=== PATIENT | female | born 1960 | race Caucasian/White ===

== ENCOUNTER → 2017-06-26 | Outpatient (CLI) | payer BC ==
[~2017-06-26] MED LIST: ASPI1TAB83 PO; DILT120C43 PO; DOCU100C31 PO; FERR1TAB23 PO; FLEC50TA20 PO; Flonase INH; LSN20 PO; LSX20 PO; OPTIRAY 320 IV PRN; PSYL55.43 PO; Tramadol PO
--- NOTE | 2017-06-26 09:17 | DIAGNOSTIC IMAGING REPORT ---
CT SCAN OF THE CHEST WITH IV CONTRAST CLINICAL HISTORY: Renal cell carcinoma. COMPARISON STUDY: Chest CT dated 11/20/2015. TECHNIQUE: Following the IV administration of 93 cc of Optiray 320, CT scan of the thorax was performed from the thoracic inlet to the upper abdomen. Images are reviewed in the axial, sagittal, and coronal planes. IV contrast was administered without complication. A dose lowering technique was utilized adhering to the principles of ALARA. CT DOSE: 1720.11 mGy.cm FINDINGS: Thyroid: Imaged portions of the thyroid gland are normal in size and attenuation. Thoracic aorta: There is mild atherosclerotic calcification of the thoracic aorta, which is normal in caliber and demonstrates standard 3-vessel arch anatomy. No dissection is seen. Pulmonary vasculature: The pulmonary trunk is normal in caliber. There are no filling defects identified in the central pulmonary vessels to indicate pulmonary embolus. Note that this examination was not protocoled for evaluation of the pulmonary arteries. Heart: The heart is mildly enlarged and without pericardial effusion. There are coronary artery calcifications. Lungs and pleural spaces: Chronic elevation of the right hemidiaphragm with associated right basilar atelectasis is similar to previous. No airspace consolidation or pleural effusion is identified. No concerning pulmonary lesion is seen. The trachea and central airways are clear. Mediastinum: There is no mediastinal lymphadenopathy. [place]: Clear. Axillae: There is no axillary lymphadenopathy. Upper abdomen: The liver is enlarged and there is evidence of hepatic steatosis. The gallbladder is surgically absent. Mild central intrahepatic biliary ductal dilatation is observed. See report of abdominal CT performed concurrently for detailed intra-abdominal findings. Skeletal structures: The skeletal structures are osteopenic. Mild degenerative change is seen throughout the thoracic spine. No lytic or blastic bony lesions are seen. IMPRESSION: 1. There is no evidence of intrathoracic metastatic disease. 2. No airspace consolidation or pleural effusion is seen. 3. Mild cardiomegaly. 4. Additional findings as above. Electronically signed by: Hugo Townsend M.D. 06/26/2017 9:15 AM Dictated Date/Time: 06/26/2017 9:11 AM
--- NOTE | 2017-06-26 09:30 | DIAGNOSTIC IMAGING REPORT ---
CT SCAN OF THE ABDOMEN AND PELVIS WITH IV CONTRAST CLINICAL HISTORY: Renal cell carcinoma. COMPARISON STUDY: Abdominal CT dated 06/25/2016. TECHNIQUE: Following the IV administration of 93 cc of Optiray 320, CT scan of the abdomen and pelvis is performed from the lung bases to the proximal femora. Images are reviewed in the axial, sagittal, and coronal planes. IV contrast was administered without complication. Automated dose control exposure was utilized. A dose lowering technique was utilized adhering to the principles of ALARA. CT DOSE: Reported separately under the concurrently performed CT scan of the chest. FINDINGS: Lung bases: The heart is mildly enlarged and without pericardial effusion. There are coronary artery calcifications. There is chronic elevation of the right hemidiaphragm with associated atelectasis. The lung bases are otherwise clear. Liver: The contrast-enhanced liver is enlarged, measuring 18.6 cm in length. Focal fatty infiltration is seen adjacent to the falciform ligament. The liver is normal in contour. There is mild central intrahepatic biliary ductal dilatation. The hepatic veins and portal veins are patent. Gallbladder: Surgically absent. Spleen: Normal in size and attenuation. Pancreas: Mildly atrophic and grossly unremarkable. Adrenal glands: Unremarkable. Kidneys: The contrast enhanced kidneys demonstrate mild cortical atrophy and are without hydronephrosis. There is postoperative change/scarring identified in the lower pole of the right kidney consistent with a history of partial nephrectomy. There is no evidence of recurrent/residual enhancing soft tissue lesion at the resection margin. No enhancing mass lesion is identified in either kidney on today's examination. Small parapelvic cysts are seen bilaterally. The kidneys enhance symmetrically. Abdominal vasculature: The abdominal aorta is normal in course and caliber noting moderate atherosclerotic calcification. Bowel: The small bowel and colon are normal in course and caliber. There is mild colonic diverticulosis without CT evidence of acute diverticulitis. Colonic fecal retention is observed. The appendix is not identified. Peritoneum: There is no intraperitoneal free air or abdominal ascites. There is a small fat-containing umbilical hernia. A midline surgical scar is noted. Lymphadenopathy: None. Pelvic viscera: The bladder, uterus, and adnexa are normal as visualized. Skeletal structures: The skeletal structures are osteopenic. Mild lumbosacral spondylosis is observed. No lytic or blastic lesions are seen. IMPRESSION: 1. There are postoperative changes from right partial nephrectomy. There is no evidence of recurrent/residual enhancing mass lesion at the resection margin. No enhancing lesion is seen in either kidney. 2. There is no evidence of metastatic disease in the abdomen or pelvis. 3. Mild colonic diverticulosis without CT evidence of acute diverticulitis. 4. Additional findings as above. Electronically signed by: Hugo Townsend M.D. 06/26/2017 9:29 AM Dictated Date/Time: 06/26/2017 9:21 AM
[2017-06-26 09:34] LABS: BASO % 1.4 %; BASO ABS # 0.08 K/uL (0-0.2); COMPLETE YES; HEMATOCRIT 36.9 % (37-47); IG% 0.2 %; LYMPH % 34.9 %; MEAN CELL VOLUME 87.2 fL (80-100); MEAN CORPUSCULAR HEMOGLOBIN 28.4 pg (25-34); MEAN CORPUSCULAR HGB CONC 32.5 g/dl (32-36); MEAN PLATELET VOLUME 8.8 fL (7.4-10.4); MONO % 6.1 %; NEUT % 53.4 %; PLATELET COUNT 245 K/uL (130-400); RED BLOOD COUNT 4.23 M/uL (4.2-5.4); WHITE BLOOD COUNT 5.73 K/uL (4.8-10.8)
[2017-06-26 10:08] LABS: ALT/SGPT 18 U/L (12-78); AST/SGOT 8 U/L (15-37); BLOOD UREA NITROGEN 24 mg/dl (7-18); BUN/CREATININE RATIO 27.2 (10-20); CALCIUM 9.3 mg/dl (8.5-10.1); CARBON DIOXIDE 28 mmol/L (21-32); CHLORIDE 109 mmol/L (98-107); CREATININE 0.89 mg/dl (0.60-1.20); GLUCOSE 92 mg/dl (70-99); POTASSIUM 4.5 mmol/L (3.5-5.1); SODIUM 139 mmol/L (136-145)
[2017-06-26 10:11] LABS: ALB/GLOB RATIO 1.3 (0.9-2); ALKALINE PHOSPHATASE 77 U/L (45-117)
== END | disposition home or self-care (01) ==
LOC: C.CTS 08:27
PROVIDERS: ATTEND Nurse Practitioner Family
DX: C64.1 Malignant neoplasm of right kidney, except renal pelvis (principal); C75.1 Malignant neoplasm of pituitary gland